=== PATIENT | female | born 1980 | race Caucasian/White ===

== ENCOUNTER 2017-03-23 07:00 | Inpatient (IN) | payer OTHER, SELFPAY ==
[2017-03-23 07:21] VITALS: BMI 37.6
[2017-03-23] MEDS: Lactated Ringers 1,000 ML 50 ML IV ×3 (07:37→19:30)
[2017-03-23] MEDS: Oxytocin 30 units/NS 500 ml 30 UNITS/500 ML IV.SOLN IV (07:39)
[2017-03-23 08:27] LABS: Hematocrit 35.3 % (37-47); Hemoglobin 11.3 g/dl (12.0-15.0); Mean Corpuscular Hgb 29.6 pg (27.0-32.0); Mean Corpuscular Volume 92.4 fL (81-99); Mean Platelet Vol. 11.3 fl (6.2-12.0); Platelet Count 206 K/mm3 (150-450); RBC Distribution Width CV 14.9 % (11.6-14.6); RBC Distribution Width SD 49.9 fl (35.1-43.9); Red Blood Count 3.82 M/mm3 (4.2-5.4)
[2017-03-23 08:36] LABS: Scan Indicated on CBC? Y/N NO
--- NOTE | 2017-03-23 12:22 | PCM.PN.BLA ---
Progress Note LABOR PROGRESS NOTE Has mild contractions. No complaints. She feels well. AVSS GEN - NAD FHR 120, moderate variability, + accelerations, no decelerations TOCO 4-5/10 min SVE 3/50/-3, moderate and midposition, cephalic A/P: 36yo @ 39 3/7wga, AMA with polyhydramnios, Cat I FHR -Continue pitocin as tolerated by mother and fetus -Consider amniotomy if/when head well applied -Membranes stripped -Maternal and statuses overall reassuring
--- NOTE | 2017-03-23 17:45 | PCM.PN.BLA ---
Progress Note LABOR PROGRESS NOTE Comfortable with epidural. No complaints. AVSS GEN - NAD, AAO x 3 FHR 115, moderate variability, + accelerations, no decelerations TOCO 4/10 min SVE 4/50/-2 moderate and anterior A/P: 36yo @ 39 3/7 wga in labor, Cat I FHR -Head well applied to cervix with no palpable cord, amniotomy performed with clear fluid -IUPC placed -Will continue pitocin as tolerated by mother and fetus
[2017-03-23] MEDS: Ondansetron 4 MG/2 ML Vial IV (19:52)
[2017-03-23] MEDS: Oxytocin 30 units/NS 500 ml 30 UNITS/500 ML IV.SOLN 334 UNITS IV (22:15)
--- NOTE | 2017-03-23 22:30 | PCM.OB.VAG ---
(1) 39 weeks gestation of Status: Acute (2) Polyhydramnios Status: Acute Qualifiers: Fetus number: single or unspecified fetus Trimester: third trimester Qualified Code(s): O40.3XX0 - Polyhydramnios, third trimester, not applicable or unspecified (3) AMA (advanced maternal age) multigravida 35+ Status: Acute Qualifiers: Trimester: third trimester Qualified Code(s): O09.523 - Supervision of elderly multigravida, third trimester Vaginal Delivery Maternal Presentation: Medically Indicated Induction Method of Induction: Pitocin Medical Reason for Induction: - - Polyhydramnios Amniotic Membrane Rupture Type: Artificial Rupture of Membrane time: 1721h 03/23/17 Amniotic Fluid Description: Moderate meconium Final ARABELLA: 03/27/17 Gestational age: 39 Weeks and 3 Days doctor who attended delivery (if requested by OB): Celine Jones Date of Procedure: 03/23/17 Pre-Operative Diagnosis: 39 3/7wga, AMA, polyhydramnios Post-Operative Diagnosis: 39 3/7wga, AMA, polyhydramnios Surgery/ Procedure Performed: Spontaneous Vaginal Delivery Anesthesiologist: Huber Bustos Type of Anesthesia: Epidural Description of Procedure: Patient was FD/+2 station and pushed with excellent maternal effort through a terminal deceleration to delivery a male in direct OA through a nuchal cord. The nuchal cord was reduced and the infant placed on the maternal abdomen. He had mild tone and small amount of respiratory effort. The cord was doubly clamped and cut and he was passed to the awaiting Pediatric Hospitalist. Cord gases and cord blood specimen were obtained. The placenta delivered spontaneously and appeared intact on inspection. A first degree vaginal laceration was repaired using 3-0 Vicryl Rapide. The fundus was firm at the umbilicus however there was some trickling of blood with fundal massage, NOT consistent with hemorrhage. An intrauterine exam was performed with retrieval of approximately 50cc of clot with scant membranes. Hemostasis was attained and the repair remained intact. Presentation: Vertex Placental Delivery Description: Spontaneous Placenta Disposition: [facility] Cord Vessel Description: 3 Vessels Nuchal Cord Compression: With compression Cord Gases drawn per routine: ABG, VBG Cord Entanglement: Around neck x 1, tight Drain: Weaver to straight drain Estimated Blood Loss: 400 Infant A gender: Male (1 minute): 7 (5 minute): 9 Episiotomy Description: None Laceration: Midline, Perineal Extension/lac, Vaginal Extension/lac, 1st degree Medications given after delivery: IV Pitocin Complications: None
--- NOTE | 2017-03-23 22:53 | DCINST_ITS ---
Discharge Diet: No Restrictions Discharge Activity: Return to Normal Activity May resume sexual activity in: 6 weeks Lifting Restrictions: 20 lb Call your doctor if you observe: Fever of 101 or Higher, Inability to urinate, Inability to have a bowel movement, Using more than one pad per hour, Shortness of breath, Chest pain, Calf discomfort, Uncontrolled pain Cleanse incision/area with: Soap & Water Additional Instructions: If you experience any of the following, contact your healthcare provider. * Bleeding that soaks a pad every hour for 2 hours * Fever 100.4 or higher * Unrelieved incision or abdominal pain * Swelling, redness, discharge or bleeding from your incision or episiotomy site * Your incision begins to separate * Problems urinating (including inability to urinate or burning while urinating) . * Visual changes * Severe headache * Flu-like symptoms * Pain or redness in one of both of your breasts * Pain, warmth, tenderness or swelling in your legs, especially the calf area * Frequent nausea and vomiting * Symptoms of depression or anxiety If you experience any of the following, call 911 or go to the nearest Emergency Room. * Chest pain * Problems breathing * Seizure activity * Partial or complete paralysis of a body part, slurred speech, weakness or drooping of the face, or a sudden inability to walk or hold your balance Allergies/Adverse Reactions: Allergies metoclopramide [From Reglan] Adverse Reaction (Verified 08/14/16 23:31) Abd cramps/diarrhea Medications to take at Discharge Docusate Sodium [Colace] 100 mg PO DAILY 03/23/17 Ibuprofen 600 mg PO TID PRN #30 tablet 03/23/17 Sumatriptan [Imitrex] 6 mg SC DAILY vial 03/25/17 The following prescriptions were given: Ibuprofen 600 mg PO TID PRN #30 tablet PRN Reason: Pain Orders to be completed after discharge: Electric breast pump Location: Determined By Patient Please Follow Up With: Joaquin Ruelas MD When: 6 weeks Primary Care Physician: Nils Chang DO [Primary Care Provider] -
[2017-03-23] MEDS: Oxytocin 30 units/NS 500 ml 30 UNITS/500 ML IV.SOLN 167 UNITS IV (23:01)
[2017-03-24] MEDS: Senna/Docusate Sodium 1 Tablet PO
[2017-03-24] MEDS: 0.9% Saline Lock 10 ML Syringe IV (00:05)
[2017-03-24 00:43] VITALS: BP 105/59; PULSE 84; RESP 20; TEMP 36.8; O2SAT 96
[2017-03-24 04:00] VITALS: BP 104/58; PULSE 84; RESP 20; TEMP 36.3; O2SAT 95
--- NOTE | 2017-03-24 06:11 | PCM.PN.OB ---
Patient Problems: Active and Suspected Problems 39 weeks gestation of (Acute) AMA (advanced maternal age) multigravida 35+ (Acute) Polyhydramnios (Acute) Subjective: Hari is . Her is nursing well. The last feed was 1 hour and she feels crampy and requests Ibuprofen. She noted gushing during feeding, but has not yet checked pad. She has been out of bed. Objective: AVSS - Physical Exam General: Alert, Oriented x3, Cooperative, No apparent distress HEENT: Atraumatic, Normocephalic Lungs: Normal air movement Cardiovascular: Regular rate, Regular Rhythm, Normal S1, Normal S2 Abdomen: Soft, Non Tender, Non-Distended, - - Fundus firm and nontender at umbilicus, lochia moderate Extremities: No edema, No Calf Tenderness Neurological: Neuro grossly intact Psych/Mental Status: Normal Affect, Appropriate, Alert and oriented to time, place, person, mood and affect Vital Signs Temp Pulse Resp BP Pulse Ox 97.4 F 84 20 104/58 95 03/24/17 04:00 03/24/17 04:00 03/24/17 04:00 03/24/17 04:00 03/24/17 04:00 Oxygen Delivery Method Room Air Weight: 99.5 kg Body Mass Index (BMI) 37.6 Intake and Output for Last 24 Hours 03/22/17 03/23/17 03/24/17 23:59 23:59 23:59 Intake Total 2400 1774 Output Total 1670 1600 Balance 730 174 Laboratory Tests Past 24 Hrs 03/23/17 03/23/17 07:35 07:35 WBC 9.0 RBC 3.82 L Hgb 11.3 L Hct 35.3 L MCV 92.4 MCH 29.6 MCHC 32.0 RDW 14.9 H RDW Differential 49.9 H Plt Count 206 MPV 11.3 Blood Type O POSITIVE Antibody Screen NEGATIVE Assessment/Plan Active and Suspected Problems 39 weeks gestation of (Acute) AMA (advanced maternal age) multigravida 35+ (Acute) Polyhydramnios (Acute) 36yo PPD#1 s/p doing well. -No issues overnight - -Ambulation encouraged
[2017-03-24] MEDS: Ibuprofen 600 MG Tablet PO ×3 (06:13→20:12)
[2017-03-24 08:00] VITALS: BP 120/58; PULSE 89; RESP 20; TEMP 37
[2017-03-24 12:52] VITALS: BP 114/65; PULSE 80; RESP 20; TEMP 36.9
[2017-03-24 16:00] VITALS: BP 105/62; PULSE 80; RESP 18; TEMP 36.5
[2017-03-24 20:10] VITALS: BP 120/70; PULSE 85; RESP 16; TEMP 36.4
[2017-03-25 02:15] VITALS: BP 101/67; PULSE 71; RESP 16; TEMP 36.6
[2017-03-25] MEDS: Ibuprofen 600 MG Tablet PO (07:31)
[2017-03-25 08:37] VITALS: BP 112/63; PULSE 89; RESP 15; TEMP 36.9; O2SAT 95
[2017-03-25 13:45] VITALS: BP 112/66; PULSE 80; RESP 14; TEMP 36.8; O2SAT 98
--- NOTE | 2017-03-25 13:45 | CASEMGMT ---
Social Work Brief Assessment completed. Refer documentation below for further details. Date of Referral/Notification: 03-24-17 Time of Referral: 2319 Referred By: Dr. Evangelista Reason for Referral: Maternal mental health; history of depression Date of Intervention: 03-25-17 Time of Intervention: 1345 Informant: Medical record and mother of baby (MOB) Hari Walter History: MOB is a 36 year old female, G6, P3 to 4 after delivering who is to be named Yassine Walter. Father of baby (FOB) is Bro Walter. MOB, FOB, and three older children live in a home on a farm. Children are ages 8, 5, and 3. 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 MOB has a masters degree in education, does not currently work outside of the home, and helps on the farm. No reports or indication of substance use or abuse issues. Drug screen done prenatally negative on 08-16-16. MOB with history of depression after 3rd child, but denies any depression issues after the first and second pregnancies. MOB reports it was about a year after the third child was born that MOB talk about this to PCP. At that time MOB was informed that likely had been experiencing . No reports or indication of any suicidal ideation. Assessment: Through discussion, MOB indicated to feel that MOB experienced more anxiety and worry rather than depression after the third delivery. MOB reports to be feeling good right now and reports to feel a positive connection to the infant. MOB asked appropriate questions and appeared interested in learning more about depression and anxiety, such as asking about risk factors and risk for in subsequent pregnancies. MOB reports FOB is supportive and feels will be encouraging to MOB should any issues arise. MOB voiced intent to speak to doctor as well, should symptoms arise. MOB expressed interest in having some take home information as well as resources for local mental health providers. MOB reports otherwise to have needed supplies at home, to have support from family locally. MOB with appropriate and congruent mood and affect during social work visit, good eye contact, pleasant, and appearing interested as evidenced in engagement in conversation and willingness to learn information. No reported issues or concerns voiced by nursing about mother/child interactions or bonding. Plan: MOB has been given packet of information on depression and anxiety, online resources, and local resources. MOB and baby to home at discharge with help from who will have some time off of work. No further needs requested or indicated. -SIDRA Perez, LAST GREASER
== END 2017-03-25 13:45 | disposition home or self-care (01) | DRG 775 ==
PROVIDERS: Admitting Provider Obstetrics & Gynecology; Family Provider Student in an Organized Health Care Education/Training Program; PCP Student in an Organized Health Care Education/Training Program; Visit Provider Obstetrics & Gynecology
DX: O40.3XX0 Polyhydramnios, third trimester, not applicable or unspecified (principal); O71.4 Obstetric high vaginal laceration alone; O09.523 Supervision of elderly multigravida, third trimester; Z3A.39 39 weeks gestation of pregnancy; O69.81X0 Labor and delivery complicated by cord around neck, without compression, not applicable or unspecified
CPT/HCPCS: 59025; 59050; 85027; 86850; 86900; 99218; J7120; A4216; G0378; J2405